=== PATIENT | female | born 1970 | race Caucasian/White ===

== ENCOUNTER 2017-11-01 16:27 | Emergency (ER) | payer OTHER ==
[2017-11-01] MEDS: fentaNYL CITRATE/PF 100 MCG/ 2ML AMP IVP ONE ×2 (16:28→16:48)
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
[2017-11-01] MEDS: fentaNYL CITRATE/PF 100 MCG/ 2ML AMP ONE (16:43)
[2017-11-01] MEDS: SILVER SULFADIAZINE TP ONE ×2 (17:23→17:29)
[2017-11-01] MEDS: HYDROcodone /APAP 5/325 1 EACH TABLET PO ONE (17:29)
[2017-11-01 17:33] VITALS: BP 108/68
== END 2017-11-01 17:31 | disposition home or self-care (01) ==
LOC: ED 16:27
DX: T23.251A Burn of second degree of right palm, initial encounter (principal); X10.2XXA Contact with fats and cooking oils, initial encounter; Y93.9 Activity, unspecified; Y92.9 Unspecified place or not applicable; Y99.9 Unspecified external cause status
CPT/HCPCS: A9270; J3010; 96374; 96376; 99283; 99284; S1016

== ENCOUNTER 2018-06-16 19:28 | Emergency (ER) | payer OTHER ==
[2018-06-16] MEDS ORDERED: AMOXICILLIN/POT 875/125 1 EACH PO ONE (20:08)
[2018-06-16] MEDS ORDERED: IBUPROFEN 200 MG TABLET PO ONE (20:14)
[2018-06-16 20:23] VITALS: BP 108/68
--- NOTE | 2018-07-05 19:05 | ED Physician Documentation ---
General Adult - HPI Stated Complaint: Cat Bite Chief Complaint: General Adult Additional Information: Bitten by cat this am when she gave it food. The cat was not hers but looked friendly. No treatment. (Later says the cat belongs to her, or a friend, or a neighbor). No modifying factors or associated events. - ROS CONST: no problems - PAST HX Past History: none Allergies/Adverse Reactions: Allergies Allergy/AdvReac Type Severity Reaction Status Date / Time No Known Allergies Allergy Verified 06/16/18 19:45 Home Medications: Ambulatory Orders Medication Instructions Recorded Amoxicillin/Potassium Clav 1 each PO Q12H #20 tablet 06/16/18 [Augmentin 875-125 Tablet] Hydroxyzine HCl 25 mg PO 06/16/18 Lamotrigine [Lamictal] 06/16/18 Tramadol HCl [Ultram] 06/16/18 Trazodone HCl [Desyrel] 100 mg PO 06/16/18 - SOCIAL HX Smoking History: non-smoker - FAMILY HX Family History: No - VITAL SIGNS Vital Signs: Vital Signs Temp Pulse Resp BP Pulse Ox 97.3 F L 82 18 108/68 98 06/16/18 19:30 06/16/18 20:22 06/16/18 20:22 06/16/18 20:22 06/16/18 20:22 - REVIEWED ASSESSMENTS Nursing Assessment Reviewed: Yes Vitals Reviewed: Yes ED Results Lab/Radiology - Orders Orders: ED Orders Category Date Time Status Amoxicillin/Potassium Clav [Augmentin 875Mg/125Mg] Med 06/16/18 20:08 Discontinued 1 each PO NOW ONE Ibuprofen [Advil] Med 06/16/18 20:14 Discontinued 600 mg PO NOW ONE General Adult Physical Exam - PHYSICAL EXAM GENERAL APPEARANCE: no distress EENT: eye inspection normal, ENT inspection normal NECK: normal inspection RESPIRATORY: no resp distress BACK: normal inspection SKIN: warm/dry, normal color, other (except two pucnture [place] right hand with surrounding erythema, < 0.5 cm) EXTREMITIES: normal range of motion NEURO: CN's nml as tested, motor nml, sensation nml Discharge Clincal Impression: Cat bite involving extremity Prescriptions: Amoxicillin/Potassium Clav [Augmentin 875-125 Tablet] 1 each PO Q12H #20 tablet Referrals: Paula Marin FNP [Primary Care Provider] - 2 Days Condition: Good Disposition: 01 HOME, SELF-CARE Decision to Admit: NO Decision Time: 20:22
== END 2018-06-16 20:22 | disposition home or self-care (01) ==
LOC: ED 19:33
DX: S69.91XA Unspecified injury of right wrist, hand and finger(s), initial encounter (principal); W55.01XA Bitten by cat, initial encounter; Y92.9 Unspecified place or not applicable; Y93.9 Activity, unspecified; Y99.9 Unspecified external cause status
CPT/HCPCS: 99283

== ENCOUNTER 2018-11-03 13:14 | Emergency (ER) | payer OTHER ==
--- NOTE | 2018-11-03 13:18 | ED Physician Documentation ---
Low Back Pain - HISTORIAN Historian: patient - HPI Stated Complaint: low back pain x 1 year Chief Complaint: Lower Extremity Problem History: back pain Onset: other (1 year ) Duration: continues in ED Recent Injury: No Context: other (all the time ) Severity: moderate Quality: similar- prior back pain Associated Symptoms: denies: fever, chills, sweating, constipation, incontinence, nausea, vomiting, problems urinating, difficulty walking, light-headedness, dizziness, numbness, weakness Worsened By:: nothing Relieved By: other (advil ) Further Comments: yes (she reports this exact back pain x 1 year. No injury. She has tramadol at home but has not taken any in a while due to the med makes her drowsy. She denies any loss of control of bowel or bladder. She also states she has relief when she takes advil but has not taken any today. She states she just wanted to see why she has had pain for one year. She has not discussed with her PCP ever about the back pain) - ROS CONST: no problems - PAST HX Past History: back pain, other (Lung cancer ) Immunizations: UTD Allergies/Adverse Reactions: Allergies Allergy/AdvReac Type Severity Reaction Status Date / Time No Known Allergies Allergy Verified 11/03/18 13:22 Home Medications: Ambulatory Orders Medication Instructions Recorded Hydroxyzine HCl 25 mg PO TID 06/16/18 Lamotrigine [Lamictal] 100 mg PO HS 06/16/18 Trazodone HCl [Desyrel] 100 mg PO HS 06/16/18 Citalopram Hydrobromide [Celexa] 20 mg PO QD 11/03/18 - SOCIAL HX Smoking History: non-smoker Alcohol Use: none Drug Use: none - FAMILY HX Family History: none - VITAL SIGNS Vital Signs: Vital Signs Temp Pulse Resp BP Pulse Ox 98.2 F 84 16 119/84 93 11/03/18 13:16 11/03/18 13:16 11/03/18 13:16 11/03/18 13:16 11/03/18 13:16 - REVIEWED ASSESSMENTS Nursing Assessment Reviewed: Yes Vitals Reviewed: Yes ED Results Lab/Radiology - Radiology Radiology Impressions: Examination: Plain film lumbar spine History: LOW BACK PAIN, NO KNOWN INJURY Findings: 4 views of the lumbar spine demonstrate normal height. Scattered osteophytes. No anterior compression. No soft tissue abnormalities. Impression: Mild degenerative changes. No compression deformity. If patient is experiencing neurologic symptoms, consider obtaining MRI to further evaluate. Electronically signed on Nov 03, 2018 2:15:22 PM CDT by: Fredy Terry - Orders Orders: ED Orders Category Date Time Status LUMBAR SPINE XR 2 OR 3 VIEWS [L SPINE 2 OR 3 VIEWS] [ Exams 11/03/18 Ordered RAD] Stat Ketorolac Tromethamine [Toradol] Med 11/03/18 13:37 Discontinued 60 mg IM NOW ONE methylPREDNISolone ACETATE [Depo-Medrol] Med 11/03/18 13:38 Discontinued 80 mg IM NOW ONE Low Back Pain/Injury - Physical Exam General Appearance: no acute distress, alert EENT: eye inspection normal, no signs of dehydration Neck: non-tender Resp/CVS: chest non-tender, breath sounds nml, heart sounds nml, no resp. distress, lungs clear, reg. rate & rhythm Abdomen: non-tender Back: non-tender, painless ROM. No: vertebral point-tendernes Neuro/Psych: oriented x3 Skin: warm/dry Extremities: non-tender Discharge Clincal Impression: Low back pain Qualifiers: Chronicity: chronic Back pain laterality: left Sciatica presence: with sciatica Sciatica laterality: sciatica of left side Qualified Code(s): M54.42 - Lumbago with sciatica, left side Referrals: Paula Marin FNP [Primary Care Provider] - 2 Days Comments: 1. Continue home meds 2. Start Medrol Dose pack as directed 11.04.18 3. Follow up with PCP in 2-4 days 4. Return to ER for any concerns Condition: Stable Disposition: 01 HOME, SELF-CARE Decision to Admit: NO Date of Decison to Admit: 11/03/18 Decision Time: 14:16
[2018-11-03] MEDS ORDERED: KETOROLAC TROMETHAMINE 60 MG/2 ML VIAL IM ONE (13:37)
[2018-11-03] MEDS ORDERED: methylPREDNISolone ACETATE 80 MG/ML VIAL IM ONE (13:38)
[2018-11-03 14:31] VITALS: BP 111/67
--- NOTE | 2018-11-03 19:17 | Diagnostic Imaging Report ---
JOSE CRAIG [facility] [address] [place], [place]. [address] Report Submission Date: Nov 03, 2018 2:15:22 PM CDT Patient Study Name: FRANKO PATTERSON Date: Nov 03, 2018 1:51:12 PM CDT Modality Type: DX Gender: F Description: L SPINE 2 OR 3 VIEWS : 74 Institution: [facility] Physician: JOSE CRAIG Examination: Plain film lumbar spine History: LOW BACK PAIN, NO KNOWN INJURY Findings: 4 views of the lumbar spine demonstrate normal height. Scattered osteophytes. No anterior compression. No soft tissue abnormalities. Impression: Mild degenerative changes. No compression deformity. If patient is experiencing neurologic symptoms, consider obtaining MRI to further evaluate. Electronically signed on Nov 03, 2018 2:15:22 PM CDT by: Fredy HERNANDEZ
== END 2018-11-03 14:24 | disposition home or self-care (01) ==
LOC: ED 13:14
DX: M54.42 Lumbago with sciatica, left side (principal)
CPT/HCPCS: 72100; 96372; 99283; J1040; J1885

== ENCOUNTER 2018-11-08 13:56 | Outpatient (CLI) | payer OTHER ==
[2018-11-08 15:01] LABS: eGFR (Non-African) > 60
== END 2018-11-08 13:58 ==
LOC: LAB 13:56
PROVIDERS: ATTEND Nurse Practitioner Family
DX: Z00.00 Encounter for general adult medical examination without abnormal findings (principal)
CPT/HCPCS: 36415; 80053; 80061

== ENCOUNTER 2018-12-12 20:17 | Emergency (ER) | payer OTHER ==
--- NOTE | 2018-12-12 20:37 | ED Physician Documentation ---
General Adult - HISTORIAN Historian: patient - HPI Chief Complaint: General Adult Further Comments: yes (48 year old female patient presents with complaints of rectal pain and itching. Denies rectal bleeding.) - ROS CONST: no problems EYES/ENT: none CVS/RESP: none GI/: none MS/SKIN/LYMPH: none NEURO/PSYCH: denies: headache - PAST HX Past History: denies: none Allergies/Adverse Reactions: Allergies Allergy/AdvReac Type Severity Reaction Status Date / Time No Known Allergies Allergy Verified 12/12/18 20:44 Home Medications: Ambulatory Orders Medication Instructions Recorded Hydroxyzine HCl 25 mg PO TID 06/16/18 Lamotrigine [Lamictal] 100 mg PO HS 06/16/18 - SOCIAL HX Smoking History: cigarettes - FAMILY HX Family History: No - VITAL SIGNS Vital Signs: Vital Signs Temp Pulse Resp BP Pulse Ox 111/67 11/03/18 14:29 - REVIEWED ASSESSMENTS Nursing Assessment Reviewed: Yes Vitals Reviewed: Yes General Adult Physical Exam - PHYSICAL EXAM GENERAL APPEARANCE: mild distress EENT: eye inspection normal, EOM palsy RESPIRATORY: no resp distress CVS: reg rate & rhythm RECTAL: normal exam, other (.5 cm skin tag noted.). No: hemorrhoids SKIN: normal color, warm/dry, NR, INT, PAL, DR NEURO: oriented X3, sensation nml, mood/affect nml Discharge Clincal Impression: Anal skin tag Referrals: Meredith Gill, [employer] MECHANIC [NURSE PRACTITIONER] - 2 Days Additional Instructions: Follow up with general surgeon for removal of tag if it continues to bother you. Tucks or witch yulisa pads as needed for discomfort. Condition: Stable Disposition: 01 HOME, SELF-CARE Decision to Admit: NO Decision Time: 20:36
[2018-12-12 20:54] VITALS: BP 108/68
== END 2018-12-12 20:54 | disposition home or self-care (01) ==
LOC: ED 20:17
DX: K64.4 Residual hemorrhoidal skin tags (principal)
CPT/HCPCS: 99281